=== PATIENT | male | born 1985 | race Caucasian/White ===

== ENCOUNTER 2020-01-02 02:53 | Outpatient (CLI) | payer BC, SELFPAY ==
[2020-01-02 19:47] LABS: SARS-CoV-2 RNA PCR Negative
== END 2020-01-02 02:54 | disposition home or self-care (01) ==
LOC: ANHCOVIDDT 02:54
PROVIDERS: PCP Physician Assistant; Visit Provider Surgery
DX: Z01.818 Encounter for other preprocedural examination (principal); Z20.828 Contact with and (suspected) exposure to other viral communicable diseases
CPT/HCPCS: 87635; C9803; U0003

== ENCOUNTER 2020-01-05 04:19 | Day surgery (SDC) | payer BC, SELFPAY ==
[2020-01-02 12:54] VITALS: BMI 21.5
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
[2020-01-05 07:10] VITALS: BP 104/64; PULSE 55; RESP 18; TEMP 36.2; O2SAT 100
[2020-01-05] MEDS: LACTATED RINGERS 1,000 ML 30 ML IV CONT (07:34)
[2020-01-05] MEDS: ONDANSETRON INJ 4 MG/2 ML VIAL IV PUSH (07:35)
[2020-01-05] MEDS: KETOROLAC 30 MG/ML VIAL (*BKC) IV PUSH (07:36)
[2020-01-05] MEDS: ACETAMINOPHEN 500 MG TABLET 1000 MG PO (07:37)
--- NOTE | 2020-01-05 08:19 | WPDHPUPDATE1 ---
History and Physical Update Update Date/Time: 01/05/20 08:19 History and Physical has been reviewed, including an updated exam of the patient. There are NO changes in the patient's condition. Risks, benefits, and alternatives have been discussed and questions answered. Patient agrees to proceed with procedure.
[2020-01-05] MEDS: ceFAZolin 2 GM/D5W 50 ML 2 GM/50 ML BAG IVPB (08:36)
[2020-01-05] MEDS: BUPIVACAINE HCL 0.5% PF 30 ML VIAL INFILTRATE (09:06)
[2020-01-05 09:56] VITALS: BP 80/44; PULSE 50; RESP 16; O2SAT 99
[2020-01-05 10:00] VITALS: BP 82/45; PULSE 52; RESP 12
--- NOTE | 2020-01-05 10:11 | P.OP_ITS ---
Procedure Note - Detailed Date of procedure: 01/05/20 Pre-op diagnosis: Recurrent Left Inguinal Hernia Recurrent left inguinal hernia Post-op diagnosis: same Procedure performed: Repair recurrent left inguinal hernia with 6 cm Parietex hernia mesh system Description of procedure: The patient was taken to surgery and IV sedation was administered. The left groin and genitalia were prepped and draped. Proposed incision was marked on the skin. This incision was a bit more transverse compared to the previous repair scar. Local was infiltrated into the skin and the deeper subcutaneous tissues. Incision was made and deepened through the subcutaneous. Crossing veins were cauterized and divided. Dissection was carried through Austen's fascia down to the external oblique aponeurosis. There was an expected amount of scar tissue in the subcutaneous. The aponeurosis was exposed as was the external ring. Additional local anesthesia was infiltrated deep to the aponeurosis in the area of the spermatic cord and inguinal canal contents. The aponeurosis was opened laterally and extended medially through the external ring. There was quite a bit of scar tissue deep to the external oblique aponeurosis making the dissection more difficult. There were numerous permanent suture which were removed as well. The leaves of the aponeurosis were dissected free from the spermatic cord. The ileoinguinal nerve was carefully preserved throughout the dissection and was left attached to the spermatic cord. The spermatic cord was dissected medially free from the pubic tubercle. I was then able to see the hernia sac coming from the direct space. Dissection was then carried out the hernia sac from the cord. Minimal mobilization or dissection of the spermatic cord was carried out to decrease chances of vascular impairment. This was a direct hernia with a wide base. It occupied most of the direct space. It was dissected back to its neck. The hernia sac was scored through the transversalis fascia circumferentially just above the neck. The sac was dunked into the retroperitoneum. A 6 centimeter Parietex [place] was chosen. It was folded to form a plug. It was placed in the defect. The edges were sutured to the transversalis fascia with interrupted 3 0 Vicryl suture. The hernia defect was then partially closed with some additional 3 0 Vicryl suture. Patch was then cut to the appropriate size and placed over the inguinal canal floor. The cord and ileoinguinal nerve were then laid over the patch. The external oblique aponeurosis was closed with interrupted 3 0 Vicryl suture. Austen's fascia was closed with interrupted 3 0 Vicryl suture. Four 0 Vicryl subcuticular skin sutures were placed. The skin was closed finally with a running 4 0 Monocryl skin suture. The wound was dressed with Exofin surgical adhesive. The patient was awakened and taken to recovery in good condition. Sponge and needle counts were correct x2. Implants: 6 cm Parietex hernia mesh system Anesthesia: MAC and local (0.5% Marcaine with Exparel) Surgeon: Bradley Junior MD Associate Professor Of Surgery: Veronica CRANDALL Estimated blood loss (mL): 5 Drains: No Packing: No Pathology: none sent Complications: None Condition: stable Disposition: same day Findings: Direct recurrent left inguinal hernia. No mesh had been used in the previous surgery.
[2020-01-05 10:15] VITALS: BP 90/44; PULSE 51; RESP 20
[2020-01-05 10:45] VITALS: BP 94/60; PULSE 45; RESP 20
[2020-01-05 11:10] VITALS: BP 96/73; PULSE 61; RESP 20
== END 2020-01-05 11:51 | disposition home or self-care (01) ==
PROVIDERS: PCP Physician Assistant; Visit Provider Surgery
PROC: (CPT 49520; principal; 2020-01-05 08:30)
DX: K40.91 Unilateral inguinal hernia, without obstruction or gangrene, recurrent (principal); K21.9 Gastro-esophageal reflux disease without esophagitis; K86.1 Other chronic pancreatitis; F17.290 Nicotine dependence, other tobacco product, uncomplicated
CPT/HCPCS: 49520; A9270; C1781; C9290; J0690; J1100; J1170; J1885; J2250; J2405; J2704; J3010; J7120

== ENCOUNTER 2020-04-29 09:30 | Outpatient (CLI) | payer BC, SELFPAY | END 2020-04-29 09:31 | LOC: ANHCOVIDVC 09:31 | PROVIDERS: PCP Physician Assistant | DX: Z23 Encounter for immunization (principal) | CPT/HCPCS: 0001A; 91300 ==

== ENCOUNTER 2020-05-20 09:31 | Outpatient (CLI) | payer BC, SELFPAY | END 2020-05-20 09:32 | disposition home or self-care (01) | LOC: ANHCOVIDVC 09:31 | PROVIDERS: PCP Physician Assistant | DX: Z23 Encounter for immunization (principal) | CPT/HCPCS: 0002A; 91300 ==

== ENCOUNTER 2022-10-05 12:23 | Outpatient (CLI) | payer OTHER, SELFPAY ==
--- NOTE | ~2022-10-05 | XR_ITS ---
EXAMINATION:XR cervical spine 4-5V DATE: 10/05/2022 12:49 INDICATION: Neck pain TECHNIQUE: AP, lateral, lateral swimmers and odontoid views of the cervical spine are provided. COMPARISON: 04/04/2005 FINDINGS: Alignment is normal. The odontoid process is intact. No fracture is identified. Vertebral b jyoti heights and disk spaces are normal. Prevertebral soft tissues are normal. IMPRESSION: 1. No acute osseous abnormality. Reviewed, dictated and finalized at location A.
== END 2022-10-05 12:24 | disposition home or self-care (01) ==
PROVIDERS: PCP Physician Assistant; Visit Provider Physician Assistant
DX: M54.2 Cervicalgia (principal)
CPT/HCPCS: 72050

== ENCOUNTER 2022-10-26 15:05 | Outpatient (CLI) | payer OTHER, SELFPAY ==
[2022-10-26 16:40] LABS: Amylase 67 U/L (30-110); CRP < 0.5 mg/dL (<1.0); Lipase 220 U/L (23-300); Triglycerides < 30 mg/dL (<150)
[2022-10-26 16:55] LABS: Erythrocyte Sedimentation Rate 4 mm/hr (0-20)
== END 2022-10-26 15:06 | disposition home or self-care (01) ==
LOC: ANHLAB 15:07
PROVIDERS: PCP Physician Assistant; Visit Provider Nurse Practitioner Family
DX: R10.11 Right upper quadrant pain (principal); R11.2 Nausea with vomiting, unspecified; R19.7 Diarrhea, unspecified; R74.8 Abnormal levels of other serum enzymes; Z87.19 Personal history of other diseases of the digestive system
CPT/HCPCS: 36415; 82150; 83690; 84478; 85652; 86140

== ENCOUNTER 2022-11-30 08:27 | Outpatient (CLI) | payer OTHER, SELFPAY ==
--- NOTE | ~2022-11-30 | MR_ITS ---
EXAMINATION: MR MRCP wo/w con/w 3D wo ind DATE: 11/30/2022 10:02 INDICATION: Abnormal levels of other serum enzymes. TECHNIQUE: Magnetic resonance imaging (MRI) of the abdomen was performed without and with 14 mL Multi Fina intravenous contrast. Sequences included coronal T2-weighted FS FSE, coronal T2-weighted FSE, a xial T1-weighted LAVA, coronal FS FIESTA, axial dual-echo T1-weighted SPGR, coronal lava-FLEX, sagitt al T2-weighted FSE, axial T2-weighted FSE, and axial DWI. Thick-slab T2-weighted FSE images were obta ined for magnetic resonance cholangiopancreatography (MRCP). Maximum intensity projection 3-D reconst ructions of the volumetric data were created by the technologist. Postcontrast sequences included cor onal LAVA-flex and time course of axial T1-weighted LAVA. COMPARISON: CT abdomen 08/21/2006 FINDINGS: ABDOMEN MRI: The liver, gallbladder, spleen, pancreas, adrenal glands, and kidneys are normal. There are no dilated loops of bowel. There are no pathologically enlarged lymph nodes. There is no free int raperitoneal fluid. ABDOMEN MRCP: The common duct is normal and measures 3 mm. No choledocholithiasis. IMPRESSION: 1. Normal abdomen. No etiology for abnormal liver function tests. Reviewed, dictated and finalized at location E.
== END 2022-11-30 08:28 | disposition home or self-care (01) ==
PROVIDERS: PCP Physician Assistant; Visit Provider Nurse Practitioner Family
DX: R74.8 Abnormal levels of other serum enzymes (principal); Z87.19 Personal history of other diseases of the digestive system
CPT/HCPCS: 74183; 76376; A9577

== ENCOUNTER 2022-12-08 01:16 | Day surgery (SDC) | payer OTHER, SELFPAY ==
[2022-11-27 13:18] VITALS: BMI 20.2
[2022-12-08 06:42] VITALS: BP 112/65; PULSE 58; RESP 22; TEMP 36.3; O2SAT 100
[2022-12-08] MEDS: LACTATED RINGERS 1,000 ML 150 ML IV CONT (07:02)
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
[2022-12-08] MEDS: BENZOCAINE (*SP) 60 ML SPRAY CAN (HURRICAINE) 1 SPRAY MUCOUS MEM (07:32)
[2022-12-08 07:41] VITALS: BP 91/56; PULSE 55; RESP 18; O2SAT 97
[2022-12-08 07:51] VITALS: BP 110/76; PULSE 56; RESP 18; O2SAT 100
[2022-12-08 08:01] VITALS: BP 119/74; PULSE 52; RESP 16; O2SAT 100
== END 2022-12-08 08:06 | disposition home or self-care (01) ==
PROVIDERS: PCP Physician Assistant; Visit Provider Internal Medicine Gastroenterology
PROC: 0DJ08ZZ Inspection of Upper Intestinal Tract, Via Natural or Artificial Opening Endoscopic (ICD-10-PCS; CPT 43235; principal; 2022-12-08 08:00)
DX: K31.89 Other diseases of stomach and duodenum (principal); K21.9 Gastro-esophageal reflux disease without esophagitis; K86.1 Other chronic pancreatitis; F17.290 Nicotine dependence, other tobacco product, uncomplicated
CPT/HCPCS: 43239; 88305; J2704; J7120

== ENCOUNTER 2022-12-17 07:29 | Outpatient (CLI) | payer OTHER, SELFPAY ==
--- NOTE | ~2022-12-17 | NM_ITS ---
EXAM: NM gastric emptying study DATE: 12/17/2022 13:33 INDICATION: Nausea with vomiting TECHNIQUE: A gastric emptying study was performed using the methodology of Sobeida CAMERON, et al. J Nucl Med 2007; 48:568-572. The patient was given a meal consisting of 2 scrambled eggs labeled with 1.05 mCi Tc-99m sulfur colloid, 2 slices of toast, two packages of jam, and approximately 120 mL of water. Simultaneous anterior and posterior 1-min images of the abdomen were obtained with the patient supin e at multiple time points over a total period of 4 hours. The geometric mean of anterior and posterio r views was determined, and the percentage retention was calculated for each time point. COMPARISON: None. FINDINGS: Gastric retention of the radiotracer-labeled meal was 74%, 37%, and 18% at the 1-hour, 2-hour, and 4- hour time points, respectively. With this technique, apparent rapid gastric emptying is suggested by <30% gastric retention at 1 hour. Delayed gastric emptying is defined by gastric retention of >90% at 1 hour, >60% retention at 2 hours, or >10% retention at 4 hours. IMPRESSION: 1. Normal gastric emptying. Reviewed, dictated and finalized at location A. IMPRESSION: 1. Normal gastric emptying.
== END 2022-12-17 07:30 | disposition home or self-care (01) ==
LOC: ANHIMG 07:34
PROVIDERS: PCP Physician Assistant; Visit Provider Internal Medicine Gastroenterology
DX: R11.2 Nausea with vomiting, unspecified (principal); R10.12 Left upper quadrant pain
CPT/HCPCS: 78264; A9541

== ENCOUNTER 2022-12-22 13:18 | Outpatient (NON) | payer OTHER, SELFPAY ==
[2022-12-28 19:36] LABS: Calprotectin, Stool 6 mcg/g; Pancreatic Elastase, Stool >500 mcg/g
== END 2022-12-22 13:19 | disposition home or self-care (01) ==
PROVIDERS: PCP Physician Assistant; Visit Provider Nurse Practitioner Family
DX: R11.2 Nausea with vomiting, unspecified (principal); R19.7 Diarrhea, unspecified; R74.8 Abnormal levels of other serum enzymes; Z87.19 Personal history of other diseases of the digestive system
CPT/HCPCS: 82653; 83993